=== PATIENT | male | born 1965 | race American Indian/Alaskan Native ===

== ENCOUNTER 2019-06-08 02:03 | Emergency (ER) | payer SELFPAY ==
[2019-06-08 02:17] VITALS: BP 117/72
[2019-06-08] MEDS ORDERED: IPRATROPIUM/ALBUTEROL SULFATE 3 ML AMPUL.NEB IH ONE ×2 (02:18→02:35)
[2019-06-08] MEDS ORDERED: methylPREDNISolone Sod Succinate 125 MG/2 ML INJ IM ONE (02:35)
--- NOTE | 2019-06-08 02:41 | Emergency Department Report ---
ED Shortness of Breath HPI - General Chief Complaint: Adult Asthma Stated Complaint: DIFFICULTY IN BREATHING Source: patient Mode of arrival: Ambulatory Limitations: No Limitations - History of Present Illness Initial Comments: Patient is a 53-year-old -[place] male with a history of asthma who presents to the ED with common of acute onset persistent dry cough, wheezing, shortness of breath and chest tightness for the last 2 days, worse in the last 2 hours. Patient states that he does not have any albuterol inhaler or nebulizer at home because of his job situation. Patient denies fever, chills, chest pain, dizziness, sore throat, nasal and sinus congestion, abdominal pain, back pain, hemoptysis or change in vision and syncope. Patient however admits that he s till smokes cigarettes occasionally. MD Complaint: shortness of breath, cough, "asthma attack" -: Sudden, days(s) (2) Severity: moderate Pain Scale: 4 Quality: dull Consistency: intermittent Improves With: nothing Worsens With: nothing Known History Of: asthma Context: recent URI Associated Symptoms: cough Treatments Prior to Arrival: none - Related Data Home Oxygen Therapy: No Previous Rx's Medication Instructions Recorded Last Taken Type ALBUTEROL Inhaler (OR & NICU) 1 - 2 puff IH Q6H PRN #1 inha 06/08/19 Unknown Rx [ProAir HFA Inhaler] Azithromycin [Zithromax Z-DEEPTI] 250 mg PO DAILY #6 tablet 06/08/19 Unknown Rx Benzonatate [Tessalon Perles] 100 mg PO Q8HR #30 capsule 06/08/19 Unknown Rx Cetirizine HCl [Zyrtec 10mg tab] 10 mg PO DAILY #30 tablet 06/08/19 Unknown Rx methylPREDNISolone [Medrol 4MG 4 mg PO DAILY #21 tab.ds.pk 06/08/19 Unknown Rx DOSEPAK (21 tabs)] Allergies Allergy/AdvReac Type Severity Reaction Status Date / Time No Known Allergies Allergy Verified 06/08/19 02:38 ED Review of Systems ROS: Stated complaint: DIFFICULTY IN BREATHING Other details as noted in HPI Constitutional: denies: chills, fever Eyes: denies: eye pain, eye discharge, vision change ENT: congestion. denies: ear pain, throat pain Respiratory: cough, shortness of breath, wheezing Cardiovascular: denies: chest pain, palpitations, dyspnea on exertion, syncope, paroxysmal nocturnal dyspnea Endocrine: no symptoms reported Gastrointestinal: denies: abdominal pain, nausea, diarrhea Genitourinary: denies: urgency, dysuria Musculoskeletal: denies: back pain, joint swelling, arthralgia Skin: denies: rash, lesions Neurological: denies: headache, weakness, paresthesias Psychiatric: denies: anxiety, depression Hematological/Lymphatic: denies: easy bleeding, easy bruising ED Past Medical Hx - Past Medical History Previous Medical History?: Yes Hx Asthma: Yes Additional medical history: Hay fever - Surgical History Past Surgical History?: No - Social History Smoking Status: Current Every Day Smoker Substance Use Type: None - Medications Home Medications: Home Medications Medication Instructions Recorded Confirmed Last Taken Type ALBUTEROL Inhaler (OR & NICU) 1 - 2 puff IH Q6H PRN #1 inha 06/08/19 Unknown Rx [ProAir HFA Inhaler] Azithromycin [Zithromax Z-DEEPTI] 250 mg PO DAILY #6 tablet 06/08/19 Unknown Rx Benzonatate [Tessalon Perles] 100 mg PO Q8HR #30 capsule 06/08/19 Unknown Rx Cetirizine HCl [Zyrtec 10mg tab] 10 mg PO DAILY #30 tablet 06/08/19 Unknown Rx methylPREDNISolone [Medrol 4MG 4 mg PO DAILY #21 tab.ds.pk 06/08/19 Unknown Rx DOSEPAK (21 tabs)] ED Physical Exam - General Limitations: No Limitations General appearance: alert, in no apparent distress - Head Head exam: Present: atraumatic, normocephalic, normal inspection - Eye Eye exam: Present: normal appearance, PERRL, EOMI Pupils: Present: normal accommodation - ENT ENT exam: Present: normal exam, normal orophraynx, mucous membranes moist, TM's normal bilaterally, normal external ear exam - Neck Neck exam: Present: normal inspection, full ROM - Respiratory Respiratory exam: Present: normal lung sounds bilaterally, wheezes (moderately diffuse chest wheezes). Absent: respiratory distress, rales, rhonchi, chest wall tenderness, accessory muscle use, prolonged expiratory - Cardiovascular Cardiovascular Exam: Present: regular rate, normal rhythm, normal heart sounds. Absent: systolic murmur, diastolic murmur, rubs, gallop - GI/Abdominal GI/Abdominal exam: Present: soft, normal bowel sounds. Absent: tenderness, guarding, rebound, hyperactive bowel sounds, mass - Rectal Rectal exam: Present: deferred - Extremities Exam Extremities exam: Present: normal inspection, full ROM, normal capillary refill - Back Exam Back exam: Present: normal inspection, full ROM. Absent: CVA tenderness (L), muscle spasm, paraspinal tenderness - Neurological Exam Neurological exam: Present: alert, oriented X3, CN II-XII intact, normal gait, reflexes normal - Psychiatric Psychiatric exam: Present: normal affect, normal mood - Skin Skin exam: Present: warm, dry, intact, normal color. Absent: rash ED Course Vital Signs 06/08/19 02:12 Temperature 99.1 F Pulse Rate 80 Respiratory 20 Rate Blood Pressure 117/72 O2 Sat by Pulse 98 Oximetry - Reevaluation(s) Reevaluation #1: 06/08/19 03:41 This is a 53-year-old male with a history of asthma presented to the ED with acute onset persistent shortness of breath, dry cough and wheezing for 2 days. In the ED, patient is alert and oriented 3 and is not in distress with normal vital signs. Patient received DuoNeb treatment in the ED, also receive suppl emental 125 mg intramuscular injection. Chest x-ray shows no acute cardiopulmonary abnormalities or pneumonitis. On reevaluation, patient's wheezing resolved with medications. Patient will discharge home on a when necessary inhaler prescription in addition to Medrol Dosepak prescriptions. Patient was referred to [facility] for follow-up, and was advised to quit tobacco smoking to improve his asthma attack frequencies or competitions. Patient was advised to return to the ED immediately if symptoms get worse. ED Medical Decision Making - Radiology Data Radiology results: report reviewed, image reviewed Chest x-ray shows no acute cardiopulmonary abnormalities or pneumonitis. - Medical Decision Making This is a 53-year-old male with a history of asthma presented to the ED with acute onset persistent shortness of breath, dry cough and wheezing for 2 days. In the ED, patient is alert and oriented 3 and is not in distress with normal vital signs. Patient received DuoNeb treatment in the ED, also receive supplemental 125 mg intramuscular injection. Chest x-ray shows no acute cardiopulmonary abnormalities or pneumonitis. On reevaluation, patient's wheezing resolved with medications. Patient will discharge home on a when necessary inhaler prescription in addition to Medrol Dosepak prescriptions. Patient was referred to [facility] for follow-up, and was advised to quit tobacco smoking to improve his asthma attack frequencies or competitions. Patient was advised to return to the ED immediately if symptoms get worse. - Differential Diagnosis acute asthmatic bronchitis; dyspnea, acute URI Critical care attestation.: If time is entered above; I have spent that time in minutes in the direct care of this critically ill patient, excluding procedure time. ED Disposition Clinical Impression: Acute bronchitis with asthma, Acute upper respiratory infection Disposition: TO HOME OR SELFCARE Is pt being admited?: No Does the pt Need Aspirin: No Condition: Stable Instructions: Acute Bronchitis (ED), Asthma (ED), Upper Respiratory Infection (ED) Additional Instructions: Take medications with food, drink plenty of fluids and follow-up with your primary care physician in 5-7 days for reevaluation. Return to the ED immediately if symptoms get worse. Consider quitting tobacco smoking to improve on the asthma control. Prescriptions: methylPREDNISolone [Medrol 4MG DOSEPAK (21 tabs)] 4 mg PO DAILY #21 tab.ds.pk ALBUTEROL Inhaler (OR & NICU) [ProAir HFA Inhaler] 1 - 2 puff IH Q6H PRN #1 inha PRN Reason: Dyspnea Benzonatate [Tessalon Perles] 100 mg PO Q8HR #30 capsule Azithromycin [Zithromax Z-DEEPTI] 250 mg PO DAILY #6 tablet Cetirizine HCl [Zyrtec 10mg tab] 10 mg PO DAILY #30 tablet Referrals: PRIMARY CARE, [Primary Care Provider] - 3-5 Days [facility] [Outside] - 3-5 Days Time of Disposition: 03:45 Print Language: SLOVENIAN
--- NOTE | 2019-06-08 03:45 | XRay Report ---
CHEST 2 VIEWS INDICATION / CLINICAL INFORMATION: dyspnea, asthma. COMPARISON: None available. FINDINGS: SUPPORT DEVICES: None. HEART / MEDIASTINUM: No significant abnormality. LUNGS / PLEURA: No significant pulmonary or pleural abnormality. No pneumothorax. ADDITIONAL FINDINGS: No significant additional findings. IMPRESSION: 1. No acute findings. Signer Name: Isabela Ruano MD Signed: 06/08/2019 3:41 AM Workstation Name: [id number]
== END 2019-06-08 04:04 | disposition home or self-care (01) ==
LOC: ED 02:03
DX: J06.9 Acute upper respiratory infection, unspecified (principal); J20.9 Acute bronchitis, unspecified; F17.200 Nicotine dependence, unspecified, uncomplicated; Z79.899 Other long term (current) drug therapy
CPT/HCPCS: 71046; 96372; 99283; J2930; 94640